=== PATIENT | male | born 1995 | race Caucasian/White ===

== ENCOUNTER 2021-12-20 04:31 | Emergency (ER) | payer MEDICAID ==
[~2021-12-20] VITALS: Ht 170.2 cm; Wt 86.0 kg
[2021-12-20] MEDS ORDERED: ACETAMINOPHEN 325MG TABLET PO ONE (05:45)
[2021-12-20] MEDS ORDERED: TOPUD PO (07:20)
[2021-12-20 07:30] VITALS: BP 136/62
== END 2021-12-20 07:21 | disposition home or self-care (01) ==
LOC: ER 04:31
DX: M79.652 Pain in left thigh (principal); M79.651 Pain in right thigh; M79.602 Pain in left arm; M79.601 Pain in right arm; W17.89XA Other fall from one level to another, initial encounter; Y93.89 Activity, other specified; Y92.89 Other specified places as the place of occurrence of the external cause
CPT/HCPCS: 73552; 99283